=== PATIENT | male | born 1985 | race Caucasian/White ===

== ENCOUNTER 2021-08-04 23:09 | Emergency (ER) | payer OTHER ==
[~2021-08-04] VITALS: Ht 172.7 cm; Wt 93.0 kg
[2021-08-04 23:18] VITALS: BP 149/98
== END 2021-08-05 03:18 | disposition left against medical advice (07) ==
LOC: ER 23:09
DX: M79.89 Other specified soft tissue disorders (principal); Z53.21 Procedure and treatment not carried out due to patient leaving prior to being seen by health care provider